=== PATIENT | male | born 1980 | race African-American/Black ===

== ENCOUNTER 2020-07-23 15:12 | Emergency (ER) | payer OTHER ==
[~2020-07-23] VITALS: Ht 185.4 cm; Wt 86.2 kg
[2020-07-23 15:30] VITALS: BP 122/66
== END 2020-07-23 16:30 | disposition home or self-care (01) ==
LOC: ER 15:12
DX: R05 Cough (principal); Z20.828 Contact with and (suspected) exposure to other viral communicable diseases